=== PATIENT | male | born 1960 | race Caucasian/White ===

== ENCOUNTER 2023-02-03 08:09 | Emergency (ER) | payer OTHER, SELFPAY ==
--- NOTE | ~2023-02-03 | XR_ITS ---
EXAMINATION: XR lumbar spine 2-3V DATE: 02/03/2023 08:56 INDICATION: Right low back pain TECHNIQUE: Anteroposterior and lateral views of the lumbar spine, and cone-down lateral view of the l umbosacral junction were obtained. COMPARISON: None. FINDINGS: 3 mm anterolisthesis L4 on L5 with associated at least moderate facet osteoarthritis. Alignment other caro normal. Minimal likely physiologic anterior wedging at T11-L1. Mild disc height loss at L3-L4 an d L4-L5. IMPRESSION: 1. Mild lumbar spondylosis with 3 mm anterolisthesis L4 on L5. Reviewed, dictated and finalized at location B.
[2023-02-03 08:24] VITALS: BP 113/66; PULSE 85; RESP 12; TEMP 36.9; O2SAT 99
--- NOTE | 2023-02-03 08:32 | ED.BACK ---
HPI - Back Pain/Injury General Chief Complaint: Back Pain/Injury Stated Complaint: back pain Time Seen by Provider: 02/03/23 08:33 Source: patient Mode of arrival: ambulatory Limitations: no limitations History of Present Illness HPI Narrative: 62-year-old male presented for complaint of right lower back pain radiating into the right hip and posterior thigh worsening over the past couple of weeks. He states this started as ?twinge? sensations the over the past 3-4 days the pain has been more constant. He denies known injury. 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 Rates pain 5/10, described as sharp and shooting. Denies numbness, tingling, weakness of the lower extremities, denies saddle paresthesia or loss of bowel or bladder. Has taken occasional ibuprofen for pain. Denies history of back surgeries. Related Data Home Medications Medication Instructions Recorded Confirmed atorvastatin 20 mg tablet 20 mg PO DAILY 02/03/23 02/03/23 lisinopril 10 mg tablet 10 mg PO DAILY 02/03/23 02/03/23 Allergies Allergy/AdvReac Type Severity Reaction Status Date / Time No Known Allergies Allergy Verified 02/03/23 08:27 Review of Systems Review of Systems: CONSTITUTIONAL: Denies body aches, fever, chills EYES: Denies visual changes CARDIOVASCULAR: Denies chest pain, palpitations, or edema. RESPIRATORY: Denies cough or dyspnea. GASTROINTESTINAL: Denies abdominal pain, nausea, vomiting, or diarrhea. : denies dysuria, hematuria, flank pain SKIN: Denies rash, itching, or wounds. MUSCULOSKELETAL: reports back pain NEUROLOGIC: Denies headache, numbness, tingling, or weakness. All systems reviewed & are unremarkable except as noted in HPI and below PMFSH Past Medical History Medical History (Updated 02/03/23 @ 08:47 by Erin Rangel APRN) HLD (hyperlipidemia) Hypertension Kidney stone Comments At time of signature, I have reviewed and agree with nursing past medical, surgical, social and family history unless otherwise noted. Please see nursing chart for further information. There is no relevant family history pertinent to the presenting complaint Exam Narrative: GENERAL: Well-appearing, well-nourished, and in no acute distress. HEAD: Normocephalic, atraumatic. EYES: conjunctivae clear NECK: Supple. full ROM CHEST: Speaks in full sentences. No respiratory distress. HEART: Regular rate and rhythm. Normal and equal peripheral pulses. MUSC: No Vertebral point or paraspinal tenderness. Right lower/mid back tenderness is mild, right SI joint tenderness; BLEs with normal strength and sensation, normal range of motion endorses pain with movement. No open wounds. Alignment normal, pulse palpable and equal bilaterally, skin warm, dry, pink. Capillary refill less than 3 seconds. Gait steady. SKIN: Warm, dry, no rash. NEURO: Alert and oriented x3. Course Course Emergency Course: Patient is aware of diagnosis, understands and agrees to treatment plan. Anticipatory guidance given. Patient agrees to follow-up as directed and is aware of reasons to seek care at the emergency department. Portions of this record may have been created with voice recognition software Level of Care: Express Care Visit Vital Signs Vital signs: Vital Signs Temperature 98.4 F 02/03/23 08:24 Pulse Rate 85 02/03/23 08:24 Respiratory Rate 12 02/03/23 08:24 Blood Pressure 113/66 02/03/23 08:24 Pulse Oximetry 99 02/03/23 08:24 Oxygen Delivery Room Air 02/03/23 08:24 Temperature 98.4 F 02/03/23 08:24 Pulse Rate 85 02/03/23 08:24 Respiratory Rate 12 02/03/23 08:24 Blood Pressure 113/66 02/03/23 08:24 Pulse Oximetry 99 02/03/23 08:24 Oxygen Delivery Room Air 02/03/23 08:24 Reviewed MDM - Back Pain/Injury MDM Narrative Medical decision making narrative: Xray reviewed with pt. Rx's reviewed with pt. Advised supportive measures and s/s to go to the ER. Pt is stable and appropriate for outpt
== END 2023-02-03 10:00 | disposition home or self-care (01) ==
PROVIDERS: Emergency Provider Nurse Practitioner Family
DX: M54.16 Radiculopathy, lumbar region (principal); E78.5 Hyperlipidemia, unspecified; I10 Essential (primary) hypertension
CPT/HCPCS: 72100; 99213; G0463